=== PATIENT | female | born 1960 | race Caucasian/White ===

== ENCOUNTER 2017-01-30 03:13 | Inpatient (IN) | payer OTHER ==
[~2017-01-30] VITALS: Ht 180.3 cm; Wt 88.5 kg
[~2017-01-30 03:13] MED LIST: CALC667T2 PO; CHOL100030 PO; DIVA250T6 PO; DOCU-170 PO; FAMO20TA8 PO; FLUO-120 PO; FURO40TA5 PO; LEVO200T9 PO; MAGN200T5 PO; MORP100T24 PO; OXYC30TA2 PO; SIMV10TA6 PO; VIT1TABL46 PO; WARF3TAB6 PO; [UNRECOGNIZED DRUG - OTHER] IH
[2017-01-30] MEDS ORDERED: MORP100T4 (03:34)
[2017-01-30] MEDS ORDERED: ALBU4TAB4 (03:37)
[2017-01-30] MEDS ORDERED: LANTUS SUBCUT (03:40)
[2017-01-30] MEDS ORDERED: CLINDAMYCIN PHOSPHATE IV 600 MG in IV DEXTROSE 5% 100 ML IV ONE (03:45)
[2017-01-30] MEDS ORDERED: HYDROMORPHONE 1 MG/1 ML DISP.SYRIN IM ONE (04:00)
[2017-01-30] MEDS ORDERED: ONDANSETRON HCL 4 MG TABLET PO ONE (04:00)
--- NOTE | 2017-01-30 04:00 | NUR ---
PT NOT SURE OF ALL MEDS.UNABLE TO CALL ANYONE AT PRESENT TIME
[2017-01-30] MEDS ORDERED: HYDROMORPHONE 2 MG/1 ML DISP.SYRIN ONE (04:04)
[2017-01-30] MEDS ORDERED: CLINDAMYCIN PHOSPHATE 600 MG/4 ML VIAL ONE (04:29)
[2017-01-30 04:30] LABS: CALCIUM 9.3 mg/dL (8.5-10.1); POTASSIUM 4.9 mmol/L (3.5-5.1)
[2017-01-30 04:31] LABS: CREATININE 4.6 mg/dL (0.6-1.3)
[2017-01-30 04:34] LABS: BASOPHILS % (AUTO) 0.6 % (0.0-2.0); EOSINOPHILS # (AUTO) 0.2 K/uL (0.0-0.7); EOSINOPHILS % (AUTO) 2.6 % (0.0-7.0); HEMATOCRIT 30.1 % (37.0-47.0); HEMOGLOBIN 10.2 g/dL (12.0-16.0); LYMPHOCYTES # (AUTO) 1.8 K/uL (0.8-4.8); LYMPHOCYTES % (AUTO) 23.6 % (20.5-51.5); MEAN CORPUSCULAR HEMOGLOBIN 32.4 uug (27.0-31.0); MEAN CORPUSCULAR HGB CONC 34 g/dL (32.0-37.0); MEAN CORPUSCULAR VOLUME 95.3 fL (81.0-99.0); MONOCYTES # (AUTO) 0.7 K/uL (0.1-1.30); MONOCYTES % (AUTO) 9.5 % (0.0-11.0); NEUTROPHILS # (AUTO) 4.9 K/uL (1.8-8.9); NEUTROPHILS % (AUTO) 63.7 % (38.5-71.5); PLATELET COUNT (AUTO) 245 K/uL (150-450); RED BLOOD CELL COUNT(AUTO) 3.16 MIL/uL (4.20-5.40); WHITE BLOOD COUNT (AUTO) 7.6 K/uL (4.0-11.2)
[2017-01-30 04:36] LABS: ALBUMIN 2.9 g/dL (3.4-5.0); BILIRUBIN,DIRECT 0.1 mg/dL (0.0-0.2); BILIRUBIN,TOTAL 0.3 mg/dL (0.2-1.0); TOTAL PROTEIN, SERUM 7.4 g/dL (6.4-8.2)
[2017-01-30] MEDS ORDERED: HYDROMORPHONE 1 MG/1 ML DISP.SYRIN IV ONE ×2 (05:15→05:30)
[2017-01-30] MEDS ORDERED: HYDROMORPHONE 1 MG/1 ML DISP.SYRIN ONE ×2 (05:15→05:43)
[2017-01-30] MEDS ORDERED: ONDANSETRON ODT 4 MG TAB.RAPDIS ONE ×2 (05:44→05:46)
[2017-01-30] MEDS ORDERED: ONDANSETRON ODT 4 MG TAB.RAPDIS SL ONE (05:45)
--- NOTE | 2017-01-30 06:38 | NUR ---
Patient is in bed, awake, resting. No cardio/respiratory distress noted.
--- NOTE | 2017-01-30 07:13 | NUR ---
Call placed to [facility] for panel call. Call back pending.
[2017-01-30] MEDS ORDERED: IPRATROPIUM BROMIDE 0.5 MG/2.5 ML NEBU NEB ONE (07:45)
[2017-01-30] MEDS ORDERED: ALBUTEROL SULFATE 2.5 MG/3 ML NEBU NEB ONE (07:45)
--- NOTE | 2017-01-30 08:00 | NUR ---
PT IS LAYING IN BED. PT IS SEDATED, ALERT AND ORIENTED X3. PT TENDS TO BE FORGETFUL. PT IS GOING IN AND OUT OF SLEEP. ONCE PT WAKES UP, PT STATES "I NEED TO SLEEP, GIVE SOMETHING FOR SLEEP". NO S/S OF RESPIRATORY DISTRESS NOTED. PT ON 2L NC. IV INTACT/PATENT. WILL CONTINUE TO MONITOR.
[2017-01-30] MEDS ORDERED: ALBUTEROL SULFATE 2.5 MG/ 0.5 ML NEBU ONE (08:04)
[2017-01-30] MEDS ORDERED: IPRATROPIUM BROMIDE 0.5 MG/2.5 ML NEBU ONE (08:04)
[2017-01-30 08:45] VITALS: BP 127/65
[2017-01-30] MEDS ORDERED: LEVOFLOXACIN 250MG /D5W 250 MG in PREMIXED 1 EACH IV SCH (10:15)
[2017-01-30] MEDS ORDERED: ONDANSETRON 4 MG/2 ML VIAL IV PRN (10:15)
[2017-01-30] MEDS ORDERED: ACETAMINOPHEN 325 MG TABLET PO PRN (10:15)
[2017-01-30] MEDS ORDERED: PANTOPRAZOLE SODIUM 40 MG TABLET.DR PO SCH (10:15)
[2017-01-30] MEDS ORDERED: LEVOFLOXACIN 500 MG/D5W 500 MG in PREMIXED 1 EACH IV ONE (10:30)
[2017-01-30 10:35] LABS: IRON, SERUM 103 ug/dL (50-175)
[2017-01-30 11:09] VITALS: BP 133/65
[2017-01-30] MEDS: PANTOPRAZOLE SODIUM 40 MG TABLET.DR PO SCH (11:43)
--- NOTE | 2017-01-30 14:17 | NUR ---
RADIO INTELLIGENCE OPERATOR CAME TO GET THE PT TO RADIOLOGY UNIT TO GET CT. PT IS TOO SEDATED. PT IS UNABLE TO STAY AWAKE, PT IS GETTING IN AND OUT SLEEP. PER PT "I HAVEN;T SLEPT ALL NIGHT". RADIO INTELLIGENCE OPERATOR WILL COME BACK.
[2017-01-30 15:15] VITALS: BP 130/65
[2017-01-30] MEDS ORDERED: Medication Not On Formulary EA (Magnesium (Magnesium Oxide) 400 MG) PO SCH (17:00)
[2017-01-30] MEDS: MAGNESIUM OXIDE 400 MG TABLET PO SCH (18:04)
[2017-01-30] MEDS: DOCUSATE SODIUM 100 MG CAPSULE PO SCH (18:04)
[2017-01-30] MEDS: CALCIUM ACETATE 667 MG CAPSULE PO SCH (18:04)
[2017-01-30] MEDS: FUROSEMIDE 40 MG TABLET PO SCH (18:04)
--- NOTE | 2017-01-30 19:41 | NUR ---
PT IS SLEEPING IN BED COMFORTABLY. NO S/S OF RESPIRATORY DISTRESS NOTED. NC AT 3L. ALL SAFETY NEEDS ARE MET.
[2017-01-30 20:23] VITALS: BP 109/50
[2017-01-30] MEDS: SIMVASTATIN 10 MG TABLET PO SCH (20:32)
[2017-01-30] MEDS: MORPHINE SULFATE 2 MG/1 ML DISP.SYRIN IV PRN (20:34)
[2017-01-30] MEDS: ZOLPIDEM 5 MG TABLET PO PRN (21:15)
[2017-01-31 00:23] VITALS: BP 123/56
[2017-01-31] MEDS: MORPHINE SULFATE 2 MG/1 ML DISP.SYRIN IV PRN ×4 (02:51→23:24)
[2017-01-31 04:39] VITALS: BP 123/65
[2017-01-31] MEDS: PANTOPRAZOLE SODIUM 40 MG TABLET.DR PO SCH (06:28)
[2017-01-31] MEDS: LEVOTHYROXINE SODIUM 200 MCG TABLET PO SCH (06:28)
--- NOTE | 2017-01-31 06:58 | NUR ---
pt not sleeping well overnight, c/o generalized pain, given x2 doses of morphine , oliguric and incontinent.kept on 3 liters oxygen , no acute distress reported,vss,afebrile, all needs attended.kept clean and dry,encourage use of call light.
--- NOTE | 2017-01-31 07:43 | NUR ---
PT IS LAYING IN BED COMFORTABLY. NO S/S OF RESPIRATORY DISTRESS NOTED. IV INTACT/PATENT. ALL SAFETY NEEDS ARE MET. WILL CONTINUE TO MONITOR.
[2017-01-31] MEDS: CALCIUM ACETATE 667 MG CAPSULE PO SCH ×3 (08:29→17:53)
[2017-01-31] MEDS ORDERED: Medication Not On Formulary EA (Vit B Cmplx 3/Fa/Vit C/Biotin (Rena-Vite Rx Tablet) 1 EA PO SCH (09:00)
[2017-01-31] MEDS: DOCUSATE SODIUM 100 MG CAPSULE PO SCH ×2 (09:21→16:37)
[2017-01-31] MEDS: CHOLECALCIFEROL 1,000 UNIT TABLET PO SCH (09:23)
[2017-01-31] MEDS: FLUOXETINE HCL 20 MG CAPSULE PO SCH (09:24)
[2017-01-31] MEDS: DIVALPROEX 250 MG TABLET.DR PO SCH (09:24)
[2017-01-31] MEDS: FUROSEMIDE 40 MG TABLET PO SCH ×2 (09:24→16:37)
[2017-01-31] MEDS: FAMOTIDINE 20 MG TABLET PO SCH (09:24)
[2017-01-31] MEDS: FOLIC ACID/VITAMIN B COMP W-C TABLET PO SCH (09:25)
[2017-01-31] MEDS: MAGNESIUM OXIDE 400 MG TABLET PO SCH ×2 (09:25→16:37)
[2017-01-31 09:40] LABS: BASOPHILS % (AUTO) 0.5 % (0.0-2.0); EOSINOPHILS # (AUTO) 0.2 K/uL (0.0-0.7); EOSINOPHILS % (AUTO) 2.9 % (0.0-7.0); HEMATOCRIT 26.9 % (37.0-47.0); HEMOGLOBIN 9.1 g/dL (12.0-16.0); LYMPHOCYTES # (AUTO) 1.4 K/uL (0.8-4.8); LYMPHOCYTES % (AUTO) 22.9 % (20.5-51.5); MEAN CORPUSCULAR HEMOGLOBIN 31.9 uug (27.0-31.0); MEAN CORPUSCULAR HGB CONC 34 g/dL (32.0-37.0); MEAN CORPUSCULAR VOLUME 94.9 fL (81.0-99.0); MONOCYTES # (AUTO) 0.6 K/uL (0.1-1.30); MONOCYTES % (AUTO) 9.4 % (0.0-11.0); NEUTROPHILS # (AUTO) 3.8 K/uL (1.8-8.9); NEUTROPHILS % (AUTO) 64.3 % (38.5-71.5); PLATELET COUNT (AUTO) 237 K/uL (150-450); RED BLOOD CELL COUNT(AUTO) 2.84 MIL/uL (4.20-5.40); RED CELL DISTRIBUTION WIDTH 13.6 % (11.5-14.5)
[2017-01-31 09:58] LABS: ALBUMIN 2.4 g/dL (3.4-5.0); BILIRUBIN,TOTAL 0.2 mg/dL (0.2-1.0); CALCIUM 8.4 mg/dL (8.5-10.1); MAGNESIUM 2.1 mg/dL (1.8-2.4); POTASSIUM 5.4 mmol/L (3.5-5.1); TOTAL PROTEIN, SERUM 6.3 g/dL (6.4-8.2)
[2017-01-31 09:59] LABS: CREATININE 5.5 mg/dL (0.6-1.3)
[2017-01-31 10:07] LABS: THYROID STIMULATING HORMONE 27.472 mIU/mL (0.358-3.740)
[2017-01-31] MEDS ORDERED: MORPHINE SULFATE 2 MG/1 ML DISP.SYRIN IV ONE ×2 (10:45→19:00)
--- NOTE | 2017-01-31 10:49 | NUR ---
pt refuses to have ct because she is still in pain, requested additional one time dose. asked lachelle supervisor grower if pt can receive pain med. Per Lachelle "give one time order morphine 1mg ONCE". Order is put in, will carry out.
--- NOTE | 2017-01-31 11:12 | NUR ---
CALLED XRAY DEPARTMENT TO ADVISE THAT TECH NEEDS TO BE PRESENT WHEN PT WILL RECEIVE PAIN MEDICATION, TO PROMPTLY GO DOWNSTAIRS AND GET CT AFTERWARD. PER PERSONAL COMPUTER NETWORK ENGINEER "IM BUSY, WILL COME LATER".
[2017-01-31 12:00] VITALS: BP 146/72
--- NOTE | 2017-01-31 13:53 | NUR ---
MRI APPROVED BY DR. CROFT.
--- NOTE | 2017-01-31 14:12 | NUR ---
MRI PATIENT TO BE SENT @ 7.00PM FOR TABLETIME 7.30PM.SPOKE TO RADIOLOGIST IN REGARDS, BUN/CRE TOO HIGH SUGGESTED TO DO WITHOUT CONTRAST INFORMED PATIENT'S PADILLA AND GIFTED TEACHER. PADILLA NURSE TO PROVIDE MRI CHECKLIST.
--- NOTE | 2017-01-31 14:23 | NUR ---
CORRECTION: PATIENT'S PADILLA
--- NOTE | 2017-01-31 14:46 | NUR ---
ALICIA AT [facility] MRI DEPARTMENT ADVISED THAT PT'S BUN IS OUT OF SAFE RANGE FOR PT TO HAVE MRI W/ CONTRAST. ALICIA ADVISED TO CALL ORDERING PHYSICIAN AND RELY THE INFORMATION. PER MANUEL FRASER DO W/ CONTRAST ANYWAYS "SINCE THE PT IS DIALYSIS PATIENT". CALLED ALICIA BACK TO RELY THE INFORMATION FROM MANUEL FRASER. DR COPE AT [place] [phone] PHONE# ADVISED THAT ITS CONTRAINDICATED FOR PT TO HAVE CONTRAST "BECAUSE OF BUN", DR COPE REQUESTED MANUEL FRASER TO CALL HIM. ADVISED MANUEL FRASER OF PH$ FOR DR COPE AND THE INFORMATION ABOUT THE PROCEDURE BEING "UNSAFE" FOR THE PT. PER MANUEL FRASER "DO MRI W/O CONTRAST FOR NOW". ORDER IS NOTED. WILL PREPARE PAPERWORK FOR MRI W/O CONTRAST UNTIL FURTHER ORDER.
[2017-01-31] MEDS: LORAZEPAM 1 MG TABLET PO PRN (14:53)
[2017-01-31 16:00] VITALS: BP 134/70
--- NOTE | 2017-01-31 17:00 | NUR ---
PT GOT DIALYSIS 2L OUT
--- NOTE | 2017-01-31 18:09 | NUR ---
PT STATES "I NEED PAIN MEDICATION BEFORE GOING TO GET MRI", RELY THE INFORMATION TO JOE MCCLURE. PER JOE BETH "1MG MORPHINE" FOR PAIN BEFORE GOING TO MRI
--- NOTE | 2017-01-31 19:20 | NUR ---
PT IS LAYING IN BED COMFORTABLY. NO S/S OF RESPIRATORY DISTRESS NOTED. NO PAIN NOTED. ALL SAFETY NEEDS ARE MET. PT IS ON NC AT 3L.
--- NOTE | 2017-01-31 19:30 | NUR ---
PATIENT PICKED UP BY AMBULANCE FOR MRI OF THE SPINAL WITHOUT CONTRAST, IN FAIR CONDITION.
[2017-01-31 20:00] VITALS: BP 139/67
--- NOTE | 2017-01-31 21:43 | NUR ---
PATIENT IS BACK FROM MRI IN FAIR CONDITION.
[2017-01-31] MEDS: SIMVASTATIN 10 MG TABLET PO SCH (21:51)
[2017-01-31] MEDS: ZOLPIDEM 5 MG TABLET PO PRN (21:52)
[2017-02-01] MEDS: LORAZEPAM 1 MG TABLET PO PRN ×4 (01:56→21:44)
[2017-02-01] MEDS: MORPHINE SULFATE 2 MG/1 ML DISP.SYRIN IV PRN ×3 (05:42→20:04)
[2017-02-01] MEDS: PANTOPRAZOLE SODIUM 40 MG TABLET.DR PO SCH (06:04)
[2017-02-01] MEDS: LEVOTHYROXINE SODIUM 200 MCG TABLET PO SCH (06:04)
[2017-02-01 06:08] VITALS: BP 131/68
--- NOTE | 2017-02-01 06:31 | NUR ---
PATIENT SLEEP MOST OF THE NIGHT, ON PAIN MANAGEMENT, NO SOB, NO CHEST PAIN, WITH EPISODES OF ANXIETY, ON AIR MATTRESS, TREATMENT DONE ON WOUNDS, KEPT COMFORTABLE.
[2017-02-01] MEDS: FOLIC ACID/VITAMIN B COMP W-C TABLET PO SCH (08:04)
[2017-02-01] MEDS: DOCUSATE SODIUM 100 MG CAPSULE PO SCH ×2 (08:04→17:27)
[2017-02-01] MEDS: CHOLECALCIFEROL 1,000 UNIT TABLET PO SCH (08:04)
[2017-02-01] MEDS: FUROSEMIDE 40 MG TABLET PO SCH ×2 (08:04→17:27)
[2017-02-01] MEDS: MAGNESIUM OXIDE 400 MG TABLET PO SCH ×2 (08:04→17:27)
[2017-02-01] MEDS: FLUOXETINE HCL 20 MG CAPSULE PO SCH (08:05)
[2017-02-01] MEDS: DIVALPROEX 250 MG TABLET.DR PO SCH (08:05)
[2017-02-01] MEDS: FAMOTIDINE 20 MG TABLET PO SCH (08:05)
[2017-02-01 08:08] LABS: BASOPHILS # (AUTO) 0.1 K/uL (0.0-0.2); BASOPHILS % (AUTO) 0.8 % (0.0-2.0); EOSINOPHILS # (AUTO) 0.2 K/uL (0.0-0.7); EOSINOPHILS % (AUTO) 2.6 % (0.0-7.0); HEMATOCRIT 31.7 % (37.0-47.0); HEMOGLOBIN 10.7 g/dL (12.0-16.0); LYMPHOCYTES # (AUTO) 1.6 K/uL (0.8-4.8); LYMPHOCYTES % (AUTO) 22.7 % (20.5-51.5); MEAN CORPUSCULAR HEMOGLOBIN 32.2 uug (27.0-31.0); MEAN CORPUSCULAR HGB CONC 34 g/dL (32.0-37.0); MEAN CORPUSCULAR VOLUME 95.5 fL (81.0-99.0); MONOCYTES # (AUTO) 0.6 K/uL (0.1-1.30); MONOCYTES % (AUTO) 8.8 % (0.0-11.0); NEUTROPHILS # (AUTO) 4.7 K/uL (1.8-8.9); NEUTROPHILS % (AUTO) 65.1 % (38.5-71.5); PLATELET COUNT (AUTO) 288 K/uL (150-450); RED BLOOD CELL COUNT(AUTO) 3.32 MIL/uL (4.20-5.40); RED CELL DISTRIBUTION WIDTH 13.5 % (11.5-14.5); WHITE BLOOD COUNT (AUTO) 7.2 K/uL (4.0-11.2)
[2017-02-01] MEDS: Z GUARD REMEDY PASTE 57 GM TUBE TOP PRN (08:14)
[2017-02-01] MEDS: CALCIUM ACETATE 667 MG CAPSULE PO SCH ×3 (08:18→17:27)
[2017-02-01 08:19] LABS: ALBUMIN 2.7 g/dL (3.4-5.0); BILIRUBIN,TOTAL 0.3 mg/dL (0.2-1.0); CALCIUM 9.1 mg/dL (8.5-10.1); MAGNESIUM 2.1 mg/dL (1.8-2.4); PHOSPHOROUS 4.8 mg/dL (2.5-4.9); POTASSIUM 5.1 mmol/L (3.5-5.1); TOTAL PROTEIN, SERUM 7.2 g/dL (6.4-8.2)
[2017-02-01 08:22] LABS: CREATININE 4.3 mg/dL (0.6-1.3)
--- NOTE | 2017-02-01 08:30 | NUR ---
AWAKE COOPERATE WELL NO SOB OR PAIN AT THIS TIME CONTINUE O2 AT 2L/MIN EAT BREAKFAST WELL HERMAN ,GEN WEAK COLLETTE LE SWELLING AND DSG D/I ON FALL PRECAUTION CALL WEN IN REACH AND BED ALARM ON
--- NOTE | 2017-02-01 11:00 | NUR ---
RESTING QUIET AT THIS TIME ,CALL WEN IN REACH AND INSTRUCTION TO CALL WHEN NEEDED
[2017-02-01 11:06] VITALS: BP 135/81
[2017-02-01 15:36] VITALS: BP 140/72
--- NOTE | 2017-02-01 17:30 | NUR ---
RESTING HEMODYNAMIC STATUS STABLE NO RESPIRATORY DISTRESS ,PAIN UNDER CONTROL SAFETY MEASURE PROVIDED CALL WEN IN REACH
--- NOTE | 2017-02-01 19:10 | NUR ---
PATIENT ALERT ORIENTED, CONT ON PAIN MANAGEMENT, NO SOB NO CHEST PAIN NOTED,TURN AND REPOSITION EVERY TWO HOURS, NO DISTRESS.
[2017-02-01 20:00] VITALS: BP 145/74
[2017-02-01] MEDS: SIMVASTATIN 10 MG TABLET PO SCH (20:08)
[2017-02-01] MEDS ORDERED: LEVOFLOXACIN 250MG /D5W 250 MG in PREMIXED 1 EACH IV SCH (21:00)
[2017-02-01] MEDS: ZOLPIDEM 5 MG TABLET PO PRN (21:49)
--- NOTE | 2017-02-02 03:12 | NUR ---
PATIENT DRESSING WAS CHANGED ON MULTIPLE WOUNDS AND CELLULITIS, TOLERATE WELL, PICTURE TAKEN. CONT ON PAIN MANAGEMENT, NO DISTRESS.
[2017-02-02 05:19] VITALS: BP 135/66
[2017-02-02] MEDS: MORPHINE SULFATE 2 MG/1 ML DISP.SYRIN IV PRN ×3 (05:57→18:05)
[2017-02-02] MEDS: LEVOTHYROXINE SODIUM 200 MCG TABLET PO SCH (06:00)
[2017-02-02] MEDS: PANTOPRAZOLE SODIUM 40 MG TABLET.DR PO SCH (06:00)
--- NOTE | 2017-02-02 08:00 | NUR ---
AWAKE ALERT COOPERATE WELL NO SOB STATE PAIN MEDICINE DOES NOT HELP MUCH MD WILL INFORM ON FALL PRECAUTION CALL WEN WITHIN REACH AND INSTRUCTION TO CALL WHEN NEED
[2017-02-02] MEDS: MAGNESIUM OXIDE 400 MG TABLET PO SCH ×2 (08:17→17:04)
[2017-02-02] MEDS: FUROSEMIDE 40 MG TABLET PO SCH ×2 (08:17→17:04)
[2017-02-02] MEDS: LORAZEPAM 1 MG TABLET PO PRN ×3 (08:17→21:56)
[2017-02-02] MEDS: CALCIUM ACETATE 667 MG CAPSULE PO SCH ×3 (08:17→17:04)
[2017-02-02] MEDS: FOLIC ACID/VITAMIN B COMP W-C TABLET PO SCH (08:17)
[2017-02-02] MEDS: FAMOTIDINE 20 MG TABLET PO SCH (08:17)
[2017-02-02] MEDS: CHOLECALCIFEROL 1,000 UNIT TABLET PO SCH (08:18)
[2017-02-02] MEDS: DOCUSATE SODIUM 100 MG CAPSULE PO SCH ×2 (08:18→17:04)
[2017-02-02] MEDS: DIVALPROEX 250 MG TABLET.DR PO SCH (08:18)
[2017-02-02] MEDS: FLUOXETINE HCL 20 MG CAPSULE PO SCH (08:18)
[2017-02-02] MEDS: Z GUARD REMEDY PASTE 57 GM TUBE TOP PRN (08:18)
--- NOTE | 2017-02-02 11:00 | NUR ---
HD AT BEDSIDE NILSA PROCEDURE WELL
[2017-02-02 11:54] VITALS: BP 137/72
--- NOTE | 2017-02-02 14:30 | NUR ---
HD FINISHED TAKE OUT 2500ML
--- NOTE | 2017-02-02 15:01 | NUR ---
WOUND CARE CONSULT: PT PRESENTS WITH EDEMA TO LOWER EXTREMITIES WHICH IS RESOLVING. ULCERS NOTED TO LEFT LOWER LEG AND LEFT PLANTAR HEEL, PRESENT ON ADMISSION WELL RT BUTTOCK ULCER. RECOMMENDATIONS MADE FOR WOUND CARE AND SKIN PROTECTION. DISCUSSED WITH NURSING STAFF. PT ON FIRST STEP MATTRESS. RECOMMEND DPM FOLLOWUP. MD IN AGREEMENT WITH PLAN OF CARE.
[2017-02-02 15:48] VITALS: BP 128/60
[2017-02-02] MEDS ORDERED: BISACODYL 10 MG SUPP.RECT RC PRN (16:30)
--- NOTE | 2017-02-02 17:00 | NUR ---
PATIENT HAVING LARGE BM AFTER DULCOLAX GIVEN STOOL OB SENT TO LAB
--- NOTE | 2017-02-02 17:26 | NUR ---
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 Will order random vancomycin post next dialysis. Will continue to monitor
[2017-02-02] MEDS ORDERED: VANCOMYCIN IV 1,250 MG in IV DEXTROSE 5% 500 ML IV ONE (18:00)
--- NOTE | 2017-02-02 18:15 | NUR ---
dr mitchell was here and debridement of left heel and left foot done at bedside christian procedure well and dsg change
[2017-02-02 18:29] LABS: *OCCULT BLOOD STOOL NEGATIVE (NEGATIVE)
--- NOTE | 2017-02-02 19:10 | NUR ---
PATIENT IN BED ALERT ORIENTED, RIGHT CHEST ALLISON CATH DRESSING INTACT, NO BLEEDING NOTED, CONT ON PAIN MANAGEMENT, NO SOB, NO CHEST PAIN NOTED, TURN AND REPOSITION EVERY TWO HOURS.
[2017-02-02 20:26] VITALS: BP 128/60
[2017-02-02] MEDS ORDERED: SULFAMETH/TRIMETH 800/160 MG TABLET PO SCH (21:00)
[2017-02-02] MEDS: CHLORHEXIDINE GLUCONATE 15 ML MOUTHWASH MM SCH (21:08)
[2017-02-02] MEDS: SIMVASTATIN 10 MG TABLET PO SCH (21:09)
[2017-02-02] MEDS: ZOLPIDEM 5 MG TABLET PO PRN (21:56)
[2017-02-03] MEDS: MORPHINE SULFATE 2 MG/1 ML DISP.SYRIN IV PRN ×2 (01:05→10:15)
[2017-02-03 06:00] VITALS: BP 130/72
[2017-02-03] MEDS: PANTOPRAZOLE SODIUM 40 MG TABLET.DR PO SCH (06:09)
[2017-02-03] MEDS: LEVOTHYROXINE SODIUM 200 MCG TABLET PO SCH (06:10)
[2017-02-03] MEDS: LORAZEPAM 1 MG TABLET PO PRN (06:32)
--- NOTE | 2017-02-03 06:46 | NUR ---
PATIENT ALERT ORIENTED, SLEPT ON AND OFF, TALKING WHILE ASLEEP, ON PAIN MANAGEMENT, WITH HELP AFTER 10MIN, GIVEN ATIVAN ORDERED FOR AGITATION, RESTLESSNESS, WITH HELP. NO SOB NO CHEST PAIN, CONT OXYGEN 3LNC, SAT 96%, TURN AND REPOSITION KEPT CLEAN AND DRY.
[2017-02-03] MEDS: CALCIUM ACETATE 667 MG CAPSULE PO SCH ×2 (08:58→12:17)
[2017-02-03] MEDS: FOLIC ACID/VITAMIN B COMP W-C TABLET PO SCH (08:58)
[2017-02-03] MEDS: FUROSEMIDE 40 MG TABLET PO SCH (08:58)
[2017-02-03] MEDS: DOCUSATE SODIUM 100 MG CAPSULE PO SCH (08:58)
[2017-02-03] MEDS: FLUOXETINE HCL 20 MG CAPSULE PO SCH (08:58)
[2017-02-03] MEDS: CHOLECALCIFEROL 1,000 UNIT TABLET PO SCH (08:58)
[2017-02-03] MEDS: MAGNESIUM OXIDE 400 MG TABLET PO SCH (08:58)
[2017-02-03] MEDS: FAMOTIDINE 20 MG TABLET PO SCH (08:58)
[2017-02-03] MEDS: DIVALPROEX 250 MG TABLET.DR PO SCH (08:58)
[2017-02-03] MEDS ORDERED: CADEXOMER IODINE 40 GM TUBE TOP SCH (09:00)
[2017-02-03] MEDS: CHLORHEXIDINE GLUCONATE 15 ML MOUTHWASH MM SCH (09:45)
--- NOTE | 2017-02-03 10:34 | NUR ---
Clinical Pharmacy Note: Vancomycin Dosing per Pharmacy Subjective: Vancomycin IV to continue on this HD patient for cellulitis. Patient received vancomycin 1250mg IVPB x1 at 1830 on 02/02 Objective: BUN 51/Scr 4.3 (02/02) WBC 7.2 (02/02) Temperature 98.2 Wound + MRSA Assessment/Plan: No HD has been scheduled for today.As per vancomycin dosing protocol for dialysis patient. No vancomycin dose shall be given today. Plan to order vancomycin random level before next HD (not yet ordered). Will continue to dose per pre-HD vancomycin level. Will follow closely daily with you.
[2017-02-03 11:13] VITALS: BP 139/76
[2017-02-03 15:09] VITALS: BP 136/82
--- NOTE | 2017-02-03 15:52 | NUR ---
DISCHARGE PROTOCOL FOLLOWED. PT REFUSED PICTURES TO BE TAKEN UPON DISCHARGE. STATING "I JUST WANT TO GO HOME NOW AND THEY WERE TAKEN YESTERDAY" EXPLAINED TO PT THE PROTOCOL ON TAKING PICTURES ON DISCHARGE AND PT STILL REFUSING. IV TAKEN OUT WITH NO REDNESS OR IRRITATION NOTED. ALL BELONGINGS ACCOUNTED FOR AND SENT HOME WITH PATIENT. PT LEFT VIA WHEELCHAIR WITH IN PRIVATE CAR.
== END 2017-02-03 15:50 | disposition home health service (06) | DRG 982 ==
LOC: ER 03:15 → TELE 08:13 → MED 01-31 09:55
PROVIDERS: ADMIT Internal Medicine; ATTEND Internal Medicine
PROC: 5A1D60Z (ICD-10-PCS; 2017-01-31)
PROC: 0KBW0ZZ Excision of Left Foot Muscle, Open Approach (ICD-10-PCS; principal; 2017-02-02)
DX: E11.621 Type 2 diabetes mellitus with foot ulcer (principal); L03.116 Cellulitis of left lower limb; E44.0 Moderate protein-calorie malnutrition; E87.1 Hypo-osmolality and hyponatremia; I13.2 Hypertensive heart and chronic kidney disease with heart failure and with stage 5 chronic kidney disease, or end stage renal disease; L03.115 Cellulitis of right lower limb; N18.6 End stage renal disease; G92 Toxic encephalopathy; E11.22 Type 2 diabetes mellitus with diabetic chronic kidney disease; T40.605A Adverse effect of unspecified narcotics, initial encounter; D63.1 Anemia in chronic kidney disease; E83.39 Other disorders of phosphorus metabolism; E87.5 Hyperkalemia; F11.10 Opioid abuse, uncomplicated; K40.90 Unilateral inguinal hernia, without obstruction or gangrene, not specified as recurrent; K42.9 Umbilical hernia without obstruction or gangrene; Z99.2 Dependence on renal dialysis; M25.552 Pain in left hip; M25.551 Pain in right hip; M25.462 Effusion, left knee; M17.12 Unilateral primary osteoarthritis, left knee; M48.07 Spinal stenosis, lumbosacral region; R59.0 Localized enlarged lymph nodes; J44.9 Chronic obstructive pulmonary disease, unspecified; Z90.49 Acquired absence of other specified parts of digestive tract; I50.9 Heart failure, unspecified; Z86.718 Personal history of other venous thrombosis and embolism; Z87.440 Personal history of urinary (tract) infections; E03.9 Hypothyroidism, unspecified; Z98.1 Arthrodesis status; E78.1 Pure hyperglyceridemia; E78.5 Hyperlipidemia, unspecified; L97.529 Non-pressure chronic ulcer of other part of left foot with unspecified severity; E11.40 Type 2 diabetes mellitus with diabetic neuropathy, unspecified; F41.9 Anxiety disorder, unspecified; Z72.0 Tobacco use; Z86.14 Personal history of Methicillin resistant Staphylococcus aureus infection; Z79.899 Other long term (current) drug therapy; M85.80 Other specified disorders of bone density and structure, unspecified site; W01.0XXA Fall on same level from slipping, tripping and stumbling without subsequent striking against object, initial encounter; E11.610 Type 2 diabetes mellitus with diabetic neuropathic arthropathy; Y92.009 Unspecified place in unspecified non-institutional (private) residence as the place of occurrence of the external cause; F31.9 Bipolar disorder, unspecified; G89.29 Other chronic pain; K59.09 Other constipation; Z68.27 Body mass index [BMI] 27.0-27.9, adult
CPT/HCPCS: 36415; 70030-TC; 71010; 72125; 72131; 72141; 72148; 72192; 73502; 73560; 73562; 83550; 83605; 83690; 83735; 84100; 84443; 85025; 85730; 87040; 87070; 87077; 93005; 93307; J1170; J1956; J2270; J2405; J3370; J3490; J3590; J7040; J7060; Q0162

== ENCOUNTER 2017-04-08 09:17 | Inpatient (IN) | payer MEDICARE, OTHER ==
[~2017-04-08] VITALS: Ht 162.6 cm; Wt 80.8 kg
[~2017-04-08 09:17] MED LIST changes: +ALBU4TAB4; -CHOL100030 PO; +CHOL100045 PO; -DOCU-170 PO; +DOCU100C36 PO; +LANTUS SUBCUT; +MORP100T4; -WARF3TAB6 PO
[2017-04-08] MEDS ORDERED: IV NORMAL SALINE 500 ML BAG IV ONE (09:30)
--- NOTE | 2017-04-08 09:31 | NUR ---
pt does not kow her med list.
--- NOTE | 2017-04-08 09:45 | NUR ---
Pt BIB [facility], reports ABD pain with n/v started last night, PR=625, BP 121/49, HR 89, has dialysis. Pt c/o ABD pain, 7-810, unable to specify where, quality, [id number]. Pt A&O x 3, not easily able to answer questions about her current condition. Denies CP, SOB, Dizziness, no other complaints, minimal distress noted. Pt attached to monitor, EKG -- given to MD, IV 20g left AC w/blood drawn and given to lab. Pt taken to CT.
[2017-04-08 09:47] LABS: EOSINOPHILS # (AUTO) 0.2 K/uL (0.0-0.7); EOSINOPHILS % (AUTO) 0.7 % (0.0-7.0); HEMATOCRIT 39.8 % (37-47); HEMOGLOBIN 13.4 G/DL (12.0-16.0); LYMPHOCYTES # (AUTO) 0.9 K/UL (0.8-4.8); LYMPHOCYTES % (AUTO) 2.7 % (20.5-51.5); MEAN CORPUSCULAR HEMOGLOBIN 33.1 UUG (27.0-31.0); MEAN CORPUSCULAR HGB CONC 34 g/dL (32.0-37.0); MEAN CORPUSCULAR VOLUME 98.2 FL (81.0-99.0); MONOCYTES # (AUTO) 1.3 K/UL (0.1-1.30); NEUTROPHILS # (AUTO) 31.2 K/UL (1.8-8.9); NEUTROPHILS % (AUTO) 92.6 % (38.5-71.5); PLATELET COUNT (AUTO) 244 K/UL (150-450); RED BLOOD CELL COUNT(AUTO) 4.05 MIL/UL (4.2-5.4)
[2017-04-08 09:49] LABS: WHITE BLOOD COUNT (AUTO) 33.6 K/UL (4.0-11.2)
[2017-04-08 10:06] LABS: BAND % (MANUAL) 12 % (0-10); LYMPHOCYTES % (MANUAL) 5 % (20-40); MONOCYTES % (MANUAL) 2 % (2-10); NEUTROPHILS % (MANUAL) 81 % (42-75)
[2017-04-08 10:12] LABS: BILIRUBIN,DIRECT 0.1 mg/dL (0.0-0.2); BILIRUBIN,TOTAL 0.4 mg/dL (0.2-1.0); CREATININE 4.6 mg/dL (0.6-1.3)
[2017-04-08] MEDS ORDERED: HYDROMORPHONE 1 MG/1 ML DISP.SYRIN IV ONE (10:15)
[2017-04-08] MEDS ORDERED: ONDANSETRON IV *ER 4 MG/2 ML VIAL IV ONE (10:15)
[2017-04-08 10:16] LABS: POTASSIUM 5.7 mmol/L (3.5-5.1)
[2017-04-08] MEDS ORDERED: HYDROMORPHONE 1 MG/1 ML DISP.SYRIN ONE (10:22)
[2017-04-08] MEDS ORDERED: ONDANSETRON 4 MG/2 ML VIAL ONE (10:23)
[2017-04-08] MEDS ORDERED: LEVOFLOXACIN 750 MG/D5W 150 ML PIGGYBACK IV ONE (10:30)
[2017-04-08] MEDS ORDERED: LEVOFLOXACIN 750MG/D5W 150 ML IV ONE (10:35)
--- NOTE | 2017-04-08 10:40 | NUR ---
Called report to [facility]
[2017-04-08] MEDS ORDERED: IV NORMAL SALINE 1000 ML BAG IV ONE (11:00)
[2017-04-08] MEDS ORDERED: VANCOMYCIN IV 200 ML IV ONE (11:00)
[2017-04-08] MEDS ORDERED: DEXTROSE 50% 50 ML DISP.SYRIN IV PRN (11:00)
[2017-04-08] MEDS ORDERED: ALBUTEROL SULFATE 1.25 MG/3 ML NEBU NEB ONE (11:00)
[2017-04-08] MEDS ORDERED: ACETAMINOPHEN 325 MG TABLET PO PRN (11:00)
[2017-04-08] MEDS ORDERED: INSULIN REGULAR, HUMAN 300 UNITS/3 ML VIAL SQ PRN (11:00)
--- NOTE | 2017-04-08 11:04 | NUR ---
ADMITTED IN RM 207 ALERT AND ORIENTED X3NO SIGNS OF DISTRESS. ROUTINE ADM ASSESSMENT INITIATED, MD NOTIFIED OF ADMISSION
[2017-04-08] MEDS ORDERED: IV NS 1000 ML 1,000 ML IV PRN (11:45)
[2017-04-08] MEDS: BLOOD SUGAR DIAGNOSTIC 1 EACH STRIP VI SCH ×3 (11:52→21:33)
[2017-04-08 11:56] VITALS: BP 128/64
[2017-04-08] MEDS ORDERED: VANCOMYCIN IV 1,500 MG in IV DEXTROSE 5% 500 ML IV ONE (12:00)
[2017-04-08] MEDS: MEROPENEM 500 MG in IV NORMAL SALINE 50 ML IV SCH (12:28)
[2017-04-08] MEDS: CALCIUM ACETATE 667 MG CAPSULE PO SCH ×2 (12:29→16:50)
[2017-04-08] MEDS ORDERED: CARI350T PO (12:49)
[2017-04-08] MEDS ORDERED: TRAZ-144 PO (12:49)
[2017-04-08] MEDS ORDERED: FOLI0.8T23 PO (12:49)
[2017-04-08] MEDS ORDERED: APIX2.5T PO (12:49)
[2017-04-08] MEDS ORDERED: MEROPENEM 1 G in IV NORMAL SALINE 100 ML IV SCH (14:00)
--- NOTE | 2017-04-08 14:03 | NUR ---
WOUND CARE CONSULT: PT PRESENTS WITH MULTIPLE DRY ESCHARS TO FEET AND TOES WELL LEFT PLANTAR ULCER, PRESENT ON ADMISSION. RECOMMEND DPM CONSULT. SACRAL AND BUTTOCK SCARRING NOTED. LIBAN SCORE IS 16. PT IS ABLE TO ASSIST WITH TURNING AND REPOSITIONING IN BED. ALL SKIN PROTECTION AND WOUND RECOMMENDATIONS DISCUSSED WITH NURSING STAFF. MD IN AGREEMENT WITH PLAN OF CARE. Addendum: 04/08/17 at 1405 by KADEEM ESQUIVEL RN Amended: Links added. Addendum: 04/08/17 at 1409 by KADEEM ESQUIVEL RN BUMP NOTED TO RT ANTERIOR LOWER LEG. PT STATES THAT SHE BUMPED HER LEG PRIOR TO ADMISSION.
[2017-04-08] MEDS ORDERED: Z GUARD REMEDY PASTE 57 GM TUBE TOP PRN (14:15)
[2017-04-08] MEDS: Z GUARD REMEDY PASTE 57 GM TUBE TOP SCH ×2 (14:17→21:33)
--- NOTE | 2017-04-08 14:46 | NUR ---
IN AND OUT CATH DONE NOTED URINE VERY CLOUDY AND SENT TO LAB FOR UA AND CS. WOUND NURSE IN WITH ORDERS
--- NOTE | 2017-04-08 15:20 | NUR ---
PT LISTED ONE OF ALLERGY IS VANCO. VERIFIED WITH PHARMACY FLAVIA SAID PER OK TO GIVE VANCOMYCIN. O SIGNS OF ALLERY REACTION NOTED AT THIS TIME. CLOSELY MONITORED
[2017-04-08 15:22] VITALS: BP 128/70
[2017-04-08 15:33] LABS: *BILIRUBIN,URIN NEGATIVE (NEGATIVE); *BLOOD, URINE 3+ (NEGATIVE); *CLARITY,URINE TURBID (CLEAR); *COLOR,URINE YELLOW (YELLOW); *KETONES,URINE NEGATIVE (NEGATIVE); *UROBILINOGEN,URINE 0.2 E.U./dl (NORMAL); LEUKOCYTE ESTERASE ,URINE 3+ (NEGATIVE); NITRITE, URINE NEGATIVE (NEGATIVE); UGLUCOSE NEGATIVE (NEGATIVE)
[2017-04-08] MEDS ORDERED: SIMETHICONE 40 MG/0.6 ML 30 ML BOTTLE PO PRN (16:00)
[2017-04-08] MEDS ORDERED: FLEET ENEMA 133 ML BOTTLE RC ONE (16:00)
[2017-04-08] MEDS ORDERED: MINERAL OIL FLEET ENEMA 133 ML BOTTLE RC ONE (16:15)
[2017-04-08 16:30] LABS: *PROTEIN,URINE 3+ (NEGATIVE)
[2017-04-08 16:31] LABS: BACTERIA,URINE MANY /HPF (NONE SEEN); SQUAMOUS EPITHELIAL CELL,UR MODERATE /HPF (NONE SEEN); WBC,URINE TNTC /HPF (0-3)
[2017-04-08] MEDS: DOCUSATE SODIUM 100 MG CAPSULE PO SCH (16:50)
[2017-04-08] MEDS: SIMETHICONE 80 MG TAB.CHEW PO PRN (16:50)
[2017-04-08] MEDS: MORPHINE SULFATE 2 MG/1 ML DISP.SYRIN SQ PRN (18:46)
[2017-04-08 20:00] VITALS: BP 128/67
--- NOTE | 2017-04-08 20:20 | NUR ---
PATIENT ALERT,ORIENTED ,VERY ANXIOUS,RESTLESS,C/O BACK PAIN ,MUSCLE SPASM,REQUESTED FOR PAIN MEDS,[facility] NURSE NOTIFIED,SOMA 350 MG PO GIVEN.PATIENT RECEIVED FLEET ENEMA STILL ,BEDSIDE COMMODE PROVIDED,STILL NOT HAS BOWEL MOVEMENT YET.
[2017-04-08] MEDS: SENNOSIDES 1 TABLET PO SCH (20:28)
[2017-04-08] MEDS: SIMVASTATIN 10 MG TABLET PO SCH (20:28)
[2017-04-08] MEDS: TRAZODONE 50 MG TABLET PO SCH (20:29)
[2017-04-08] MEDS: CARISOPRODOL 350 MG TABLET PO PRN (20:29)
[2017-04-08] MEDS ORDERED: INSULIN DETEMIR 300 UNIT/3 ML CARTRIDGE SQ SCH (21:00)
[2017-04-08] MEDS ORDERED: DOCUSATE SODIUM 100 MG CAPSULE PO SCH (21:00)
[2017-04-08] MEDS ORDERED: INSULIN GLARGINE,HUM 300 UNITS/3 ML CARTRIDGE SQ SCH (21:00)
[2017-04-09] VITALS: BP 125/67
--- NOTE | 2017-04-09 00:05 | NUR ---
PATIENT SLEEP INTERMITTENTLY,CONT CLOSELY MONITOR, BED ALARM ON.BILATERAL LOWER EXTREMITIES ELEVATED ON 2 PILLOWS.
[2017-04-09] MEDS: MORPHINE SULFATE 2 MG/1 ML DISP.SYRIN SQ PRN ×3 (01:46→19:54)
[2017-04-09] MEDS: ONDANSETRON 4 MG/2 ML VIAL IV PRN ×2 (01:53→17:18)
[2017-04-09 04:00] VITALS: BP 122/57
[2017-04-09] MEDS: LEVOTHYROXINE SODIUM 200 MCG TABLET PO SCH (06:17)
[2017-04-09] MEDS: BLOOD SUGAR DIAGNOSTIC 1 EACH STRIP VI SCH ×6 (06:18→20:50)
--- NOTE | 2017-04-09 06:30 | NUR ---
BLOOD SUGAR = 55,PATIENT ALERT,ORIENTED,DOES NOT WANTS TO DRINK ORANGE JUICE,D 50%W 5O ML ADMIN,CONTINUE CLOSELY MONITOR.
--- NOTE | 2017-04-09 07:08 | NUR ---
RECHECK BLOOD [id number]=180,EARLY BREAKFAST ORDER,PATIENT NOT IN ANY DISTRESS.
[2017-04-09 07:35] LABS: EOSINOPHILS # (AUTO) 0.2 K/uL (0.0-0.7); EOSINOPHILS % (AUTO) 1.3 % (0.0-7.0); HEMATOCRIT 36.9 % (37-47); HEMOGLOBIN 12.4 G/DL (12.0-16.0); LYMPHOCYTES # (AUTO) 1.4 K/UL (0.8-4.8); LYMPHOCYTES % (AUTO) 8.7 % (20.5-51.5); MEAN CORPUSCULAR HGB CONC 34 g/dL (32.0-37.0); MEAN CORPUSCULAR VOLUME 98.3 FL (81.0-99.0); MONOCYTES % (AUTO) 6.2 % (0.0-11.0); NEUTROPHILS # (AUTO) 13.2 K/UL (1.8-8.9); NEUTROPHILS % (AUTO) 83.8 % (38.5-71.5); PLATELET COUNT (AUTO) 192 K/UL (150-450); RED BLOOD CELL COUNT(AUTO) 3.75 MIL/UL (4.2-5.4); WHITE BLOOD COUNT (AUTO) 15.8 K/UL (4.0-11.2)
[2017-04-09 07:41] LABS: BILIRUBIN,TOTAL 0.3 mg/dL (0.2-1.0); CREATININE 4.8 mg/dL (0.6-1.3); POTASSIUM 5.3 mmol/L (3.5-5.1); TOTAL PROTEIN, SERUM 7.1 g/dL (6.4-8.2)
[2017-04-09] MEDS: CALCIUM ACETATE 667 MG CAPSULE PO SCH ×3 (08:20→17:12)
[2017-04-09] MEDS: CHOLECALCIFEROL 1,000 UNIT TABLET PO SCH (08:20)
[2017-04-09] MEDS: Z GUARD REMEDY PASTE 57 GM TUBE TOP SCH ×2 (08:21→20:44)
[2017-04-09] MEDS: CARISOPRODOL 350 MG TABLET PO PRN ×2 (08:21→20:43)
[2017-04-09] MEDS: PANTOPRAZOLE SODIUM 40 MG VIAL IV SCH (08:21)
[2017-04-09] MEDS: FOLIC ACID/VITAMIN B COMP W-C TABLET PO SCH (08:21)
[2017-04-09] MEDS: FLUOXETINE HCL 20 MG CAPSULE PO SCH (08:21)
[2017-04-09] MEDS: DOCUSATE SODIUM 100 MG CAPSULE PO SCH ×2 (08:21→17:12)
[2017-04-09] MEDS: DIVALPROEX 250 MG TABLET.DR PO SCH (08:21)
[2017-04-09] MEDS ORDERED: Medication Not On Formulary EA (Vit B Cmplx 3/Fa/Vit C/Biotin (Rena-Vite Rx Tablet) 1 EA PO SCH (09:00)
[2017-04-09 09:51] LABS: BAND % (MANUAL) 3 % (0-10); LYMPHOCYTES % (MANUAL) 8 % (20-40); METAMYELOCYTES % 1 % (0-1); MONOCYTES % (MANUAL) 6 % (2-10); NEUTROPHILS % (MANUAL) 82 % (42-75)
[2017-04-09] MEDS: GENTAMICIN SULFATE 0.1% OINT 15 GM TUBE TOP SCH ×2 (10:35→17:12)
[2017-04-09 11:44] VITALS: BP 153/83
--- NOTE | 2017-04-09 11:53 | NUR ---
Patient blood sugar is 42. notified and juice given. Will discuss potential lowering HS levemir. Addendum: 04/09/17 at 1155 by HARITHA STRAUSS RN patient alert and oriented times four. Patient reports feeling slighty weak.
--- NOTE | 2017-04-09 12:06 | NUR ---
Patient BS is now 80. Patient eating vanilla pudding at this time. Will encourage intake at lunchtime.
[2017-04-09] MEDS: MEROPENEM 500 MG in IV NORMAL SALINE 50 ML IV SCH (12:28)
--- NOTE | 2017-04-09 14:14 | NUR ---
CLINICAL PHARMACY NOTE: VANCOMYCIN PHARMACY TO DOSE Subjective: To continue vancomycin in this 56 yo female for suspected infection (sepsis). Is on HD as outpatient however has not been started on HD inpatient Objective: height 162 cm weight 95kg bmi 36 BUN 12 Scr 4.8 wbc 15.8 temp 98.2 Random 17.4 (today's am labs) Assessment/Plan One dose 1500mg vancomycin given yesterday. As HD has not been started inpatient yet, will dose by fall off level and follow HD protocol if were to change. Based on today's random, will re-dose one time 1500mg, due at 1430 today. Will order repeat randoms as appropriate and check daily if HD started. Will continue to follow
[2017-04-09] MEDS ORDERED: VANCOMYCIN IV 1,500 MG in IV DEXTROSE 5% 500 ML IV ONE (14:30)
[2017-04-09 15:53] VITALS: BP 136/55
[2017-04-09] MEDS ORDERED: Medication Not On Formulary EA (Apixaban (Eliquis) 2.5 MG) PO SCH (18:45)
[2017-04-09 19:00] VITALS: BP 149/75
[2017-04-09] MEDS: SIMVASTATIN 10 MG TABLET PO SCH (20:43)
[2017-04-09] MEDS: APIXABAN 5 MG TABLET PO SCH (20:43)
[2017-04-09] MEDS: SENNOSIDES 1 TABLET PO SCH (20:44)
[2017-04-09] MEDS: TRAZODONE 50 MG TABLET PO SCH (20:44)
[2017-04-09] MEDS: MUPIROCIN 2% OINT 22 GM TUBE NS SCH (20:50)
--- NOTE | 2017-04-09 21:00 | NUR ---
BLOOD SUGAR 143,PATIENT REQUESTED TO HOLD REGULAR INSULIN COVERAGE,STATES NOT EATING WELL.ENCOURAGE TO TAKE MORE ORALLY INTAKE.
[2017-04-10] MEDS: MORPHINE SULFATE 2 MG/1 ML DISP.SYRIN SQ PRN ×2 (01:07→06:45)
[2017-04-10] MEDS: ONDANSETRON 4 MG/2 ML VIAL IV PRN ×3 (01:18→16:36)
[2017-04-10 04:00] VITALS: BP 161/81
[2017-04-10 05:57] LABS: MAGNESIUM 3.8 mg/dL (1.8-2.4); POTASSIUM 5.3 mmol/L (3.5-5.1)
[2017-04-10 06:00] LABS: BASOPHILS % (AUTO) 0.4 % (0.0-2.0); EOSINOPHILS # (AUTO) 0.2 K/uL (0.0-0.7); EOSINOPHILS % (AUTO) 1.5 % (0.0-7.0); HEMATOCRIT 34.2 % (37-47); HEMOGLOBIN 11.5 G/DL (12.0-16.0); LYMPHOCYTES # (AUTO) 1.2 K/UL (0.8-4.8); LYMPHOCYTES % (AUTO) 11.6 % (20.5-51.5); MEAN CORPUSCULAR HEMOGLOBIN 32.8 UUG (27.0-31.0); MEAN CORPUSCULAR HGB CONC 34 g/dL (32.0-37.0); MEAN CORPUSCULAR VOLUME 97.4 FL (81.0-99.0); MONOCYTES # (AUTO) 0.7 K/UL (0.1-1.30); MONOCYTES % (AUTO) 6.6 % (0.0-11.0); NEUTROPHILS # (AUTO) 7.9 K/UL (1.8-8.9); NEUTROPHILS % (AUTO) 79.9 % (38.5-71.5); PLATELET COUNT (AUTO) 198 K/UL (150-450); RED BLOOD CELL COUNT(AUTO) 3.51 MIL/UL (4.2-5.4)
[2017-04-10] MEDS: LEVOTHYROXINE SODIUM 200 MCG TABLET PO SCH (06:06)
[2017-04-10] MEDS: BLOOD SUGAR DIAGNOSTIC 1 EACH STRIP VI SCH ×4 (06:28→20:14)
--- NOTE | 2017-04-10 07:30 | NUR ---
Received patient s/p HD. Patient is alert, in no acute distress. HD access intact, no s/s of bleeding. Will continue to monitor.
--- NOTE | 2017-04-10 08:00 | NUR ---
CONTINUE CURRENT TX PLAN, IV ANTIBIOTIC AND CLOSE MONITORING. NO SIGNS OF DISTRESS
[2017-04-10] MEDS: PANTOPRAZOLE SODIUM 40 MG VIAL IV SCH (08:36)
[2017-04-10] MEDS: CHOLECALCIFEROL 1,000 UNIT TABLET PO SCH (08:37)
[2017-04-10] MEDS: DIVALPROEX 250 MG TABLET.DR PO SCH (08:37)
[2017-04-10] MEDS: CALCIUM ACETATE 667 MG CAPSULE PO SCH ×3 (08:37→17:36)
[2017-04-10] MEDS: FLUOXETINE HCL 20 MG CAPSULE PO SCH (08:37)
[2017-04-10] MEDS: FOLIC ACID/VITAMIN B COMP W-C TABLET PO SCH (08:37)
[2017-04-10] MEDS: DOCUSATE SODIUM 100 MG CAPSULE PO SCH ×2 (08:37→16:37)
[2017-04-10] MEDS: APIXABAN 5 MG TABLET PO SCH ×2 (08:39→16:42)
[2017-04-10] MEDS: MUPIROCIN 2% OINT 22 GM TUBE NS SCH ×2 (08:39→20:04)
[2017-04-10] MEDS: GENTAMICIN SULFATE 0.1% OINT 15 GM TUBE TOP SCH ×2 (08:40→16:38)
[2017-04-10] MEDS: Z GUARD REMEDY PASTE 57 GM TUBE TOP SCH ×2 (08:41→20:08)
[2017-04-10] MEDS: INSULIN REGULAR, HUMAN 300 UNIT/3 ML VIAL SQ PRN ×3 (09:08→16:41)
[2017-04-10] MEDS: SIMETHICONE 80 MG TAB.CHEW PO PRN (09:20)
[2017-04-10 11:42] VITALS: BP 161/82
[2017-04-10] MEDS ORDERED: MORPHINE SULFATE IR 30 MG TABLET PO SCH (11:45)
[2017-04-10] MEDS: MORPHINE SULFATE SR 15 MG TABLET.SA PO SCH ×2 (12:00→20:02)
--- NOTE | 2017-04-10 12:00 | NUR ---
SEEN BY DR ESPINOSA WITH ORDERS. FOR HEMODIALYSIS TODAY
[2017-04-10] MEDS: MEROPENEM 500 MG in IV NORMAL SALINE 50 ML IV SCH (12:09)
[2017-04-10] MEDS ORDERED: NEUTRA PHOS PACKET PO ONE (15:45)
[2017-04-10 16:18] VITALS: BP 130/63
--- NOTE | 2017-04-10 16:26 | NUR ---
CLINICAL PHARMACY NOTE: VANCOMYCIN PHARMACY TO DOSE Subjective: To continue vancomycin in this 56 yo female for SIRS, UTI ==> Strep, BLE acute on chronic cellulitis===> Hx MRSA PNA (per ID note). On HD. Objective: height 162 cm weight 95kg bmi 36 BUN 42 Scr 4 wbc 10 temp 98 Vanco pre-HD level: 14.3 (with am labs) Assessment/Plan HD has been scheduled for today. Since vancomycin pre-HD level is below 15 mgc/ml, will give vancomycin 1000 mg IVPB x1 today post HD. Will continue to dose as per vancomycin dosing protocol for HD patient (by pre-HD level). Will continue to follow
[2017-04-10] MEDS: OXYCODONE HCL 5 MG TABLET PO PRN (16:39)
[2017-04-10] MEDS: LORAZEPAM 1 MG TABLET PO PRN (17:33)
[2017-04-10] MEDS: SIMVASTATIN 10 MG TABLET PO SCH (20:01)
[2017-04-10] MEDS: SENNOSIDES 1 TABLET PO SCH (20:01)
[2017-04-10] MEDS: TRAZODONE 50 MG TABLET PO SCH (20:02)
[2017-04-10 20:10] VITALS: BP 147/64
[2017-04-10] MEDS ORDERED: MEROPENEM 500 MG in IV NORMAL SALINE 50 ML IV SCH (21:00)
[2017-04-10] MEDS ORDERED: VANCOMYCIN IV 1 G in PREMIXED 0 EACH IV ONE (21:30)
[2017-04-11] MEDS: OXYCODONE HCL 5 MG TABLET PO PRN ×3 (00:16→13:03)
[2017-04-11] MEDS: ONDANSETRON 4 MG/2 ML VIAL IV PRN (00:19)
[2017-04-11] MEDS: LORAZEPAM 1 MG TABLET PO PRN ×2 (02:19→16:37)
[2017-04-11] MEDS: PANTOPRAZOLE SODIUM 40 MG TABLET.DR PO SCH (06:04)
[2017-04-11] MEDS: LEVOTHYROXINE SODIUM 200 MCG TABLET PO SCH (06:04)
[2017-04-11 06:11] VITALS: BP 130/64
--- NOTE | 2017-04-11 06:28 | NUR ---
Patient slept intermittently, in no acute distress. Pain management and wound treatment as ordered. Patient kept clean and dry, repositioned for comfort, heels offloaded. Call light within reach, bed alarm on. Will continue to monitor.
[2017-04-11] MEDS: BLOOD SUGAR DIAGNOSTIC 1 EACH STRIP VI SCH ×4 (06:35→21:22)
[2017-04-11 07:30] LABS: CREATININE 3.4 mg/dL (0.6-1.3); MAGNESIUM 3.4 mg/dL (1.8-2.4); PHOSPHOROUS 1.9 mg/dL (2.5-4.9); POTASSIUM 4.5 mmol/L (3.5-5.1)
--- NOTE | 2017-04-11 07:30 | NUR ---
RECEIVED PATIENT IN BED AWAKE ALERT AND ORIENTED PATIENT WAS MEDICATED WITH OXY IR ABOUT 0600 PER REPORT AND SHE IS COMFORTABLE AT THIS TIME.PERMA CATH RIGHT CHEST AREA IS INTACT AT THIS TIME ASSISTED TO TURN AND REPOSITION MADE COMFORTABLE AND WILL OBSERVE.
[2017-04-11 07:55] LABS: BASOPHILS % (AUTO) 0.4 % (0.0-2.0); EOSINOPHILS # (AUTO) 0.1 K/uL (0.0-0.7); EOSINOPHILS % (AUTO) 1.5 % (0.0-7.0); HEMATOCRIT 34.7 % (37-47); HEMOGLOBIN 11.9 G/DL (12.0-16.0); LYMPHOCYTES # (AUTO) 1.2 K/UL (0.8-4.8); LYMPHOCYTES % (AUTO) 13.9 % (20.5-51.5); MEAN CORPUSCULAR HEMOGLOBIN 33.3 UUG (27.0-31.0); MEAN CORPUSCULAR HGB CONC 34 g/dL (32.0-37.0); MEAN CORPUSCULAR VOLUME 97.3 FL (81.0-99.0); MONOCYTES # (AUTO) 0.6 K/UL (0.1-1.30); MONOCYTES % (AUTO) 7.2 % (0.0-11.0); NEUTROPHILS # (AUTO) 6.6 K/UL (1.8-8.9); PLATELET COUNT (AUTO) 211 K/UL (150-450); RED BLOOD CELL COUNT(AUTO) 3.57 MIL/UL (4.2-5.4); WHITE BLOOD COUNT (AUTO) 8.5 K/UL (4.0-11.2)
[2017-04-11] MEDS: DIVALPROEX 250 MG TABLET.DR PO SCH (08:31)
[2017-04-11] MEDS: FOLIC ACID/VITAMIN B COMP W-C TABLET PO SCH (08:31)
[2017-04-11] MEDS: CHOLECALCIFEROL 1,000 UNIT TABLET PO SCH (08:31)
[2017-04-11] MEDS: CALCIUM ACETATE 667 MG CAPSULE PO SCH ×3 (08:31→17:21)
[2017-04-11] MEDS: MORPHINE SULFATE SR 15 MG TABLET.SA PO SCH ×2 (08:32→21:06)
[2017-04-11] MEDS: GENTAMICIN SULFATE 0.1% OINT 15 GM TUBE TOP SCH ×2 (08:33→17:29)
[2017-04-11] MEDS: MUPIROCIN 2% OINT 22 GM TUBE NS SCH ×2 (08:33→21:07)
[2017-04-11] MEDS: CARISOPRODOL 350 MG TABLET PO PRN (08:37)
[2017-04-11] MEDS: APIXABAN 5 MG TABLET PO SCH ×2 (08:37→16:53)
[2017-04-11] MEDS: FLUOXETINE HCL 20 MG CAPSULE PO SCH (08:37)
[2017-04-11] MEDS: Z GUARD REMEDY PASTE 57 GM TUBE TOP SCH ×2 (08:38→21:10)
[2017-04-11] MEDS: DOCUSATE SODIUM 100 MG CAPSULE PO SCH ×2 (08:42→16:37)
[2017-04-11 11:08] VITALS: BP 141/67
[2017-04-11] MEDS: INSULIN REGULAR, HUMAN 300 UNIT/3 ML VIAL SQ PRN ×2 (11:41→16:52)
--- NOTE | 2017-04-11 13:45 | NUR ---
CLINICAL PHARMACY NOTE: VANCOMYCIN PHARMACY TO DOSE Subjective: To continue vancomycin in this 56 yo female for SIRS, UTI ==> Strep, BLE acute on chronic cellulitis===> Hx MRSA PNA (per ID note). On HD. Objective: height 162 cm weight 95kg bmi 36 BUN 31 Scr 3.4 wbc 8.5 temp 98 Assessment/Plan No HD has been scheduled for today, thus no dose will be given today. Will f/u in am and continue to dose as per vancomycin dosing protocol for HD patient (by pre-HD level). Will continue to follow
[2017-04-11] MEDS: ARIPIPRAZOLE 5 MG TABLET PO SCH (14:12)
--- NOTE | 2017-04-11 15:00 | NUR ---
ENCOURAGED TO TURN AND REPOSITION Q2H NO S/S OF HYPO/HYPERGLYCEMIC REACTIONS AT THIS TIME.
[2017-04-11] MEDS ORDERED: NEUTRA PHOS PACKET PO ONE (15:15)
[2017-04-11 16:28] VITALS: BP_SYST 73
[2017-04-11] MEDS: DIVALPROEX 500 MG TABLET.DR PO SCH (16:37)
--- NOTE | 2017-04-11 17:29 | NUR ---
Clinical Pharmacy Note: Gentamicin Dosing per Pharmacy Subjective: Gentamicin IV to continue on this 56 yo female patient for this dialysis patient for UTI. Objective: BUN 31/ Scr 3.4 WBC 8.5 Temp 98.1 ht 5'4'' wt 81 kg Assessment/Plan: No HD has been scheduled for today. Will give gentamicin 80mg IVPB x1 dose now (1mg/kg). Will continue dose by pre-HD gentamicin level. Monitor daily.
[2017-04-11] MEDS ORDERED: GENTAMICIN SULFATE INJ 80 MG in IV DEXTROSE 5% 50 ML IV ONE (18:30)
--- NOTE | 2017-04-11 18:45 | NUR ---
REMAIN ON IV ANTIBIOTICS ORDERED WITH NO ADVERSE OR ALLERGIC REACTIONS AT THIS TIME.
--- NOTE | 2017-04-11 19:30 | NUR ---
PATIENT ALERT, AWAKE, NO SOB NO CHEST PAIN NOTED, ON OXYGEN 2L NC, OXYGEN SAT WNL, TURN AND REPOSITION, CONT ON PAIN MANAGEMENT, REMAIN ON CONTACT ISOLATION MRSA NARES. GOOD HANDWASHING OBSERVED.
[2017-04-11 20:28] VITALS: BP 159/78
[2017-04-11] MEDS: TRAZODONE 50 MG TABLET PO SCH (21:06)
[2017-04-11] MEDS: SIMVASTATIN 10 MG TABLET PO SCH (21:06)
[2017-04-11] MEDS: SENNOSIDES 1 TABLET PO SCH (21:07)
[2017-04-12] MEDS: BLOOD SUGAR DIAGNOSTIC 1 EACH STRIP VI SCH ×3 (05:57→17:10)
[2017-04-12] MEDS: LEVOTHYROXINE SODIUM 200 MCG TABLET PO SCH (06:36)
[2017-04-12] MEDS: PANTOPRAZOLE SODIUM 40 MG TABLET.DR PO SCH (06:36)
[2017-04-12 06:48] VITALS: BP 145/75
[2017-04-12] MEDS: OXYCODONE HCL 5 MG TABLET PO PRN ×3 (06:54→17:59)
--- NOTE | 2017-04-12 06:58 | NUR ---
PATIENT AWAKE, VERBALLY RESPONSIVE NO SOB NO CHEST PAIN, ON PAIN MANAGEMENT, GIVEN PAIN MEDS INDICATED, BUT SEEKING MORE AND MORE PAIN MEDICATIONS, V/S WNL NO S/S OF DISTRESS. CONT TO MONITOR.
[2017-04-12 07:01] LABS: BASOPHILS % (AUTO) 0.5 % (0.0-2.0); EOSINOPHILS # (AUTO) 0.1 K/uL (0.0-0.7); EOSINOPHILS % (AUTO) 1.4 % (0.0-7.0); HEMATOCRIT 34.8 % (37-47); HEMOGLOBIN 11.8 G/DL (12.0-16.0); LYMPHOCYTES # (AUTO) 1.5 K/UL (0.8-4.8); LYMPHOCYTES % (AUTO) 19.8 % (20.5-51.5); MEAN CORPUSCULAR HGB CONC 34 g/dL (32.0-37.0); MEAN CORPUSCULAR VOLUME 97.4 FL (81.0-99.0); MONOCYTES # (AUTO) 0.5 K/UL (0.1-1.30); MONOCYTES % (AUTO) 6.7 % (0.0-11.0); NEUTROPHILS # (AUTO) 5.5 K/UL (1.8-8.9); NEUTROPHILS % (AUTO) 71.6 % (38.5-71.5); PLATELET COUNT (AUTO) 210 K/UL (150-450); RED BLOOD CELL COUNT(AUTO) 3.57 MIL/UL (4.2-5.4); WHITE BLOOD COUNT (AUTO) 7.6 K/UL (4.0-11.2)
--- NOTE | 2017-04-12 07:05 | NUR ---
PATIENT RECEIVED IN ROOM RESTING IN BED ALERT AWAKE AND ORIENTED. MEDICATED FOR PAIN ORDERED PER REPORT. RESPIRATIONS EVEN AND UNLABORED. WILL CONTINUE MONITORING.
[2017-04-12 07:53] LABS: CREATININE 3.9 mg/dL (0.6-1.3); MAGNESIUM 3.6 mg/dL (1.8-2.4); PHOSPHOROUS 2.2 mg/dL (2.5-4.9); POTASSIUM 4.7 mmol/L (3.5-5.1)
[2017-04-12] MEDS: FOLIC ACID/VITAMIN B COMP W-C TABLET PO SCH (09:33)
[2017-04-12] MEDS: DOCUSATE SODIUM 100 MG CAPSULE PO SCH ×2 (09:33→17:00)
[2017-04-12] MEDS: APIXABAN 5 MG TABLET PO SCH ×2 (09:37→17:00)
[2017-04-12] MEDS: MORPHINE SULFATE SR 15 MG TABLET.SA PO SCH (09:37)
[2017-04-12] MEDS: CALCIUM ACETATE 667 MG CAPSULE PO SCH ×3 (09:38→17:40)
[2017-04-12] MEDS: ARIPIPRAZOLE 5 MG TABLET PO SCH (09:39)
[2017-04-12] MEDS: FLUOXETINE HCL 20 MG CAPSULE PO SCH (09:40)
[2017-04-12] MEDS: DIVALPROEX 500 MG TABLET.DR PO SCH ×2 (09:40→17:00)
[2017-04-12] MEDS: CHOLECALCIFEROL 1,000 UNIT TABLET PO SCH (09:40)
[2017-04-12] MEDS: GENTAMICIN SULFATE 0.1% OINT 15 GM TUBE TOP SCH ×2 (09:42→17:00)
[2017-04-12] MEDS: MUPIROCIN 2% OINT 22 GM TUBE NS SCH (09:42)
[2017-04-12] MEDS: Z GUARD REMEDY PASTE 57 GM TUBE TOP SCH (09:43)
[2017-04-12] MEDS ORDERED: NEUTRA PHOS PACKET PO ONE (10:15)
--- NOTE | 2017-04-12 11:00 | NUR ---
Discharge plan: Once medically cleared patient will be discharge back home [[address] [place] [address]]. [facility] has accepted the patient to their service [Epo ]. Patient will be transported via [place] [facility] and has a brick picker time of 1900. Patient is aware and agreeable with discharge plans.
[2017-04-12 12:15] VITALS: BP 155/76
--- NOTE | 2017-04-12 13:30 | NUR ---
FINISHED DIALYSIS NO FLUIDS REMOVED. EVALUATED BY HOSPICE.
[2017-04-12] MEDS: CARISOPRODOL 350 MG TABLET PO PRN (13:32)
[2017-04-12] MEDS: INSULIN REGULAR, HUMAN 300 UNIT/3 ML VIAL SQ PRN (13:35)
[2017-04-12] MEDS ORDERED: VANCOMYCIN IV 500 MG in IV DEXTROSE 5% 100 ML IV ONE (14:00)
[2017-04-12] MEDS ORDERED: AMLODIPINE 5 MG TABLET PO SCH (14:15)
[2017-04-12] MEDS ORDERED: DIVA500T2 PO (15:34)
[2017-04-12] MEDS ORDERED: MUPI22OI2 NS (15:34)
[2017-04-12] MEDS ORDERED: AMLO5TAB2 PO (15:34)
[2017-04-12] MEDS ORDERED: MORP15TA60 PO (15:34)
[2017-04-12] MEDS ORDERED: FOLI0.8T2 PO (15:34)
[2017-04-12] MEDS ORDERED: OXYC5TAB3 PO ×2 (15:34)
[2017-04-12] MEDS ORDERED: SENN-167 PO (15:34)
[2017-04-12] MEDS ORDERED: ARIP5TAB10 PO (15:34)
[2017-04-12] MEDS ORDERED: Gentamicin Sulfate 0.1% Oint TOP (15:34)
[2017-04-12 15:44] VITALS: BP 132/71
[2017-04-12] MEDS ORDERED: LEVO250T2 PO ×2 (15:53→16:02)
--- NOTE | 2017-04-12 17:05 | NUR ---
Clinical Pharmacy Note: Gentamicin & vancomycin Dosing per Pharmacy Subjective: Gentamicin IV & vancomycin IV to continue on this 56 yo female patient for SIRS, UTI ==> Strep, BLE acute on chronic cellulitis===> Hx MRSA PNA (per ID note). On HD. Objective: BUN 39/ Scr 3.9 WBC 7.6 Temp 98 Vanco pre-HD level: 18.9 Gent pre-HD level: 2.3 ht 5'4'' wt 81 kg Assessment/Plan: HD was done for today. Since vancomycin pre-HD level is between 15-20 mcg/ml, gave vancomycin 500mg IVPB x1 dose post HD today as per protocol. Will continue to dose as per pre-HD level. Since gentamicin pre-HD is above 2 mcg/ml, no gentamicin dose is due today post HD. Will continue dose by pre-HD gentamicin level. Monitor daily.
[2017-04-12] MEDS: ONDANSETRON 4 MG/2 ML VIAL IV PRN (17:48)
--- NOTE | 2017-04-12 18:47 | NUR ---
DISCHARGING PATIENT HOME WITH HOSPICE. DISCHARGE INSTRUCTIONS PROVIDED. LIST OF BELONGINGS SIGNED AND ALL WAS TAKEN. PATIENT WILL BE PICKED UP BY AMBULANCE AT 1900. WILL ENDORSE TO NEXT SHIFT.
--- NOTE | 2017-04-12 19:30 | NUR ---
PT RECEIVED IN BED, AWAKE. A/OX2. V/S STABLE. NO SIGNS OF ACUTE DISTRESS. NO COMPLAINTS OF PAIN AT THIS TIME. ABLE TO MAKE NEEDS KNOWN. SAFETY MEASURES IMPLEMENTED. CALL LIGHT WITHIN REACH.
--- NOTE | 2017-04-12 19:55 | NUR ---
PT D/C TO HOME VIA AMBULANCE. IV D/C. PT IN STABLE CONDITION.
[2017-04-13] MEDS ORDERED: LEVOFLOXACIN 250 MG TABLET PO SCH (06:00)
== END 2017-04-12 19:55 | disposition hospice, home (50) | DRG 871 ==
LOC: ER 09:19 → TELE 10:51 → MED 04-09 11:32
PROVIDERS: ADMIT Internal Medicine; ATTEND Internal Medicine
PROC: 5A1D60Z (ICD-10-PCS; principal; 2017-04-09)
DX: A41.9 Sepsis, unspecified organism (principal); J15.6 Pneumonia due to other Gram-negative bacteria; R53.2 Functional quadriplegia; N18.6 End stage renal disease; G92 Toxic encephalopathy; D68.9 Coagulation defect, unspecified; E44.0 Moderate protein-calorie malnutrition; L03.116 Cellulitis of left lower limb; E11.52 Type 2 diabetes mellitus with diabetic peripheral angiopathy with gangrene; L03.115 Cellulitis of right lower limb; E87.1 Hypo-osmolality and hyponatremia; F11.20 Opioid dependence, uncomplicated; J44.0 Chronic obstructive pulmonary disease with (acute) lower respiratory infection; J44.1 Chronic obstructive pulmonary disease with (acute) exacerbation; N39.0 Urinary tract infection, site not specified; I12.0 Hypertensive chronic kidney disease with stage 5 chronic kidney disease or end stage renal disease; D64.9 Anemia, unspecified; E11.649 Type 2 diabetes mellitus with hypoglycemia without coma; E11.40 Type 2 diabetes mellitus with diabetic neuropathy, unspecified; E11.621 Type 2 diabetes mellitus with foot ulcer; Z99.2 Dependence on renal dialysis; E11.22 Type 2 diabetes mellitus with diabetic chronic kidney disease; E11.65 Type 2 diabetes mellitus with hyperglycemia; E78.5 Hyperlipidemia, unspecified; E83.41 Hypermagnesemia; E89.0 Postprocedural hypothyroidism; E83.39 Other disorders of phosphorus metabolism; E78.1 Pure hyperglyceridemia; G89.4 Chronic pain syndrome; Z90.49 Acquired absence of other specified parts of digestive tract; Z90.710 Acquired absence of both cervix and uterus; Z88.1 Allergy status to other antibiotic agents; Z88.8 Allergy status to other drugs, medicaments and biological substances; Z86.718 Personal history of other venous thrombosis and embolism; E11.610 Type 2 diabetes mellitus with diabetic neuropathic arthropathy; M19.90 Unspecified osteoarthritis, unspecified site; K29.70 Gastritis, unspecified, without bleeding; Z87.440 Personal history of urinary (tract) infections; Z98.1 Arthrodesis status; Z86.14 Personal history of Methicillin resistant Staphylococcus aureus infection; I83.029 Varicose veins of left lower extremity with ulcer of unspecified site; M85.80 Other specified disorders of bone density and structure, unspecified site; M17.9 Osteoarthritis of knee, unspecified; K42.9 Umbilical hernia without obstruction or gangrene; L89.159 Pressure ulcer of sacral region, unspecified stage; B95.1 Streptococcus, group B, as the cause of diseases classified elsewhere; Z22.322 Carrier or suspected carrier of Methicillin resistant Staphylococcus aureus
CPT/HCPCS: 36415; 70030-TC; 71010; 74000; 80164; 83605; 83690; 83735; 84100; 85025; 85730; 87040; 87070; 87086; 93005; A4217; A4663; C1758; C9113; J1170; J1580; J1815; J1956; J2185; J2270; J2405; J3370; J3490; J7030; J7040; J7060

== ENCOUNTER 2025-03-31 14:29 | Emergency (ER) | payer OTHER ==
[~2025-03-31 14:29] MED LIST changes: -ALBU4TAB4; +AMLO-212 PO; +APIX2.5T PO; +ARIP5TAB10 PO; -DIVA250T6 PO; +DIVA500T2 PO; -FLUO-120 PO; +FLUO20CA42 PO; +FOLI0.8T2 PO; -FURO40TA5 PO; +Gentamicin Sulfate 0.1% Oint TOP; -LANTUS SUBCUT; +LEVO250T2 PO; -MAGN200T5 PO; -MORP100T24 PO; -MORP100T4; +MORP15TA60 PO; +MUPI22OI2 NS; -OXYC30TA2 PO; +OXYC5TAB3 PO; +SENN-261 PO; -SIMV10TA6 PO; +SIMV10TA98 PO; -VIT1TABL46 PO; -[UNRECOGNIZED DRUG - OTHER] IH
== END 2025-03-31 14:55 | disposition home or self-care (01) ==
LOC: ER 14:29
DX: R10.9 Unspecified abdominal pain (principal); Z53.21 Procedure and treatment not carried out due to patient leaving prior to being seen by health care provider